=== PATIENT | female | born 1995 | race Caucasian/White ===

== ENCOUNTER → 2017-08-17 16:21 | Outpatient (CLI) | payer OTHER, SELFPAY ==
[2015-02-09 13:00] VITALS: BP 150/70
[2017-08-17 15:16] VITALS: BP 130/78; BMI 45.1
[2017-08-17 17:53] LABS: Hemoglobin A1c 5.2 % (4.2-6.3)
== END ==
PROVIDERS: Visit Provider Obstetrics & Gynecology
DX: Z34.81 Encounter for supervision of other normal pregnancy, first trimester (principal)
CPT/HCPCS: 36415; 83036

== ENCOUNTER → 2017-08-17 18:26 | Outpatient (CLI) | payer OTHER, SELFPAY ==
[2015-02-09 13:00] VITALS: BP 150/70
[2017-08-17 15:16] VITALS: BP 130/78; BMI 45.1
[2017-08-17 20:28] LABS: Chlamydia Trachomatis by PCR Negative (Negative); Neisserai gonorrhoeae by PCR Negative (Negative); Probe Check PASS; Sample Adequacy Control PASS; Specimen Processing Control PASS
[2017-08-22 17:11] LABS: HPV Reflexed? NOT INDICATED
== END ==
PROVIDERS: Visit Provider Obstetrics & Gynecology
DX: Z34.90 Encounter for supervision of normal pregnancy, unspecified, unspecified trimester (principal); Z12.4 Encounter for screening for malignant neoplasm of cervix
CPT/HCPCS: 87086; 87491; 87591; 88175; G0145

== ENCOUNTER → 2017-10-02 08:02 | Outpatient (REF) | payer SELFPAY ==
[2017-10-02 14:39] LABS: Absolute Lymphocyte Count 1.65 X10^3/ul (0.83-4.51); Absolute Neutrophil Count 9.3 X10^3/uL (2.0-7.7); Basophil# 0.02 X10^3/uL; Basophil% 0.2 % (0-1); Eosinophil# 0.14 X10^3/uL; Eosinophils% 1.2 % (0-5); Hematocrit 38.6 % (37-47); Hemoglobin 12.6 g/dl (12.0-15.0); Lymphocyte # 1.65 X10^3/ul (4.0); Lymphocyte % 14.2 % (19-41); Mean Corp Hgb Conc 32.6 g/gl (32-36); Mean Corpuscular Hgb 29.5 pg (27.0-32.0); Mean Corpuscular Volume 90.4 fL (81-99); Mean Platelet Vol. 11.4 fl (6.2-12.0); Monocyte# 0.46 X10^3/uL; Monocyte% 3.9 % (0-10); Neutrophil # 9.32 X10^3/uL (2.7-7.7); Neutrophil % 79.9 % (47-70); POSITIVE COUNT NO; POSITIVE DIFFERENTIAL NO; POSITIVE MORPHOLOGY NO; Platelet Count 230 K/mm3 (150-450); RBC Distribution Width SD 46.5 fl (35.1-43.9); Red Blood Count 4.27 M/mm3 (4.2-5.4); White Blood Count 11.7 K/mm3 (4.4-11.0)
== END ==
LOC: OLS.WCEH 08:02
DX: Z34.91 Encounter for supervision of normal pregnancy, unspecified, first trimester (principal)
CPT/HCPCS: 85025

== ENCOUNTER → 2017-10-02 14:16 | Outpatient (CLI) | payer OTHER, SELFPAY ==
[2017-10-02 14:42] LABS: Glucose Challenge Gest 1H 50g 140 mg/dL (70-140)
[2017-10-02 15:45] LABS: HIV - WCH Non-Reactive (Nonreactive); Rubella IgG 213.4 IU/mL
[2017-10-03 09:30] LABS: HEPATITIS B SURFACE AG Negative (Negative)
[2017-10-06 03:10] LABS: Rapid Plasmin Reagin (RPR) NONREACTIVE (NONREACTIVE)
== END ==
PROVIDERS: Visit Provider Obstetrics & Gynecology
DX: Z34.91 Encounter for supervision of normal pregnancy, unspecified, first trimester (principal)
CPT/HCPCS: 82950; 86592; 86703; 86762; 86850; 86900; 87340

== ENCOUNTER → 2017-11-01 16:18 | Outpatient (CLI) | payer OTHER, SELFPAY ==
--- NOTE | 2017-11-01 16:19 | US_ITS ---
STUDY: SECOND AND THIRD TRIMESTER OBSTETRICAL ULTRASOUND REASON FOR EXAM: Female, 22 years old. Routine survey. LMP: June 20, 2017. TECHNIQUE: Transabdominal and Transvaginal PRIOR ULTRASOUND: None. FINDINGS: There is a single intrauterine fetus. The fetus is in a variable presentation. There is demonstrated cardiac activity with a heart rate of 153 bpm. There is a normal amniotic fluid volume. The largest amniotic fluid pocket measures 5.8 cm x 3.8 cm. The placenta is posterior in location and is not low lying. There are Grade 0 placental changes. The cervix measures 3.5 cm in length. The adnexal regions are not visualized. BIOMETRY: BPD: 4.15 cm: 18 weeks, 5 days HC: 16.81 cm: 19 weeks, 4 days AC: 14.82 cm: 20 weeks, 1 days FL: 3.14 cm: 19 weeks, 6 days CI: 71% FL/BPD: 76% FL/HC: FL/AC: 21% HC/AC: 1.13 age by current US: 19 weeks, 4 days. DIEGO by current US: March 24, 2018. Estimated weight: 316 grams, +/- 46 grams, 84 %. Age by LMP: 19 weeks, 1 days. DIEGO by LMP: March 27, 2018. ANATOMY: Gender: Female Cranium: Normal lateral ventricles. Normal choroid plexus. Normal cerebellum. Normal cisterna magna. Normal face, nose and lips. Chest: Normal 4-chamber heart. Abdomen/Pelvis: Normal diaphragm. Normal stomach. Normal abdominal wall. Normal cord insertion. Normal 3 vessel cord. Normal kidneys. Normal bladder. Spine: Normal cervical spine. Normal thoracic spine. Normal lumbar spine. Normal sacrum. Extremities: Normal bilateral upper extremities. Normal bilateral lower extremities. US/OB Anatomy Scan IMPRESSION: Single live uterine gestation with a mean gestational age of 19 weeks and 4 days. Electronically Signed: Lamonte Mackay MD at 8:30 EDT Tel [phone], Service support ,
== END ==
PROVIDERS: Visit Provider Obstetrics & Gynecology
DX: Z34.91 Encounter for supervision of normal pregnancy, unspecified, first trimester (principal)
CPT/HCPCS: 76805

== ENCOUNTER → 2017-11-24 07:47 | Outpatient (CLI) | payer OTHER, SELFPAY ==
[2017-11-24 09:08] LABS: Glucose GTT-Gestation. Fasting 81 mg/dL (<105)
[2017-11-24 10:14] LABS: Glucose GTT-Gestational 1 Hr 153 mg/dL (<190)
[2017-11-24 12:09] LABS: Glucose GTT-Gestational 3 Hr 54 L (<145)
[2017-11-24 12:10] LABS: Glucose GTT-Gestational 2 Hr 113 mg/dL (<165)
== END ==
PROVIDERS: Visit Provider Obstetrics & Gynecology
DX: O99.810 Abnormal glucose complicating pregnancy (principal); Z3A.00 Weeks of gestation of pregnancy not specified
CPT/HCPCS: 36415; 82951; 82952

== ENCOUNTER → 2018-01-30 16:12 | Outpatient (CLI) | payer OTHER, SELFPAY ==
--- NOTE | 2018-01-30 16:14 | US_ITS ---
STUDY: SECOND AND THIRD TRIMESTER OBSTETRICAL ULTRASOUND - LIMITED REASON FOR EXAM: Female, 22 years old. growth. LMP: June 20, 2017 PRIOR ULTRASOUND: November 01, 2017. TECHNIQUE: Transabdominal ultrasound evaluation was performed. FINDINGS: There is a single intrauterine fetus. The fetus is in a cephalic presentation. There is demonstrated cardiac activity with a heart rate of 144 bpm. There is a normal amniotic fluid volume. The largest amniotic fluid pocket measures 5.6 by cm. The amniotic fluid index (LORNA) is 11.59 cm. The placenta is posterior in location and is not low lying. There are Grade 3 placental changes. The cervix measures 4.3 cm cm in length. BIOMETRY: BPD: 7.99 cm: 32 weeks, 1 days HC: 32.06 cm: 36 weeks, 2 days AC: 28.53 cm: 32 weeks, 4 days FL: 6.38 cm: 33 weeks, 0 days Age by LMP: 32 weeks, 0 days. DIEGO by LMP: March 27, 2018. age by prior US: 32 weeks, 3 days. DIEGO by prior US: March 24, 2018. age by current US: 33 weeks, 4 days. DIEGO by current US: March 16, 2018. Estimated weight: 2094 grams, +/- 306 grams, 67 percentile. US/OB Limited With Biometrics IMPRESSION: 1. Live single intrauterine at 33 weeks, 4 days. DIEGO is March 16, 2018. There is adequate interval growth since the prior ultrasound. 2. EFW of 2094 g. 3. LORNA of 11.59 cm. 4. Posterior grade 3 placenta. 5. Vertex presentation. Electronically Signed: Hemal Ford DO at 20:48 EDT Tel [phone], Service support ,
== END ==
LOC: US 16:13
PROVIDERS: Visit Provider Obstetrics & Gynecology
DX: Z34.91 Encounter for supervision of normal pregnancy, unspecified, first trimester (principal)
CPT/HCPCS: 76816

== ENCOUNTER 2018-02-18 12:10 | Outpatient (CLI) | payer OTHER, SELFPAY ==
[2018-02-18 12:45] VITALS: BMI 46.3
[2018-02-18 13:13] LABS: Red Blood Cells-Urine 0 SEEN /hpf (0-5)
[2018-02-18 13:15] LABS: Color, Urine Yellow (Yellow); Glucose, Dipstick Normal (Normal); Ketone-Dipstick 5 mg/dl (Negative); Leukocyte Esterase-Dipstick 25 /ul (Negative); Nitrite-Dipstick Negative (Negative); Occult Blood-Urine Negative /ul (Negative); Protein-Dipstick 15 mg/dl (Negative); Specific Gravity, Urine 1.025 (1.002-1.030); Urine Bilirubin Dipstick Negative (Negative); Urine Clarity Clear (Clear); Urine Urobilinogen Normal (Normal)
[2018-02-18 13:22] LABS: Bacteria 1+ /hpf (None Seen); Mucous, Urine 1+ /hpf (<or=2+); Squamous Epithelial Cells - UA 5-10 SEEN /hpf (5-10); White Blood Cells 0-5 SEEN /hpf (0-5)
--- NOTE | 2018-02-21 00:55 | OB.TRI.NOTE ---
- Problem List (1) Decreased movement Status: Acute History of Present Illness Date of Service: 02/21/18 Reason For Visit: LOW MOVEMENT Final DIEGO: 03/26/18 Final DIEGO Source: LMP Gestational age: 35 Weeks and 2 Days History of Present Illness: decreased fm Allergies coconut Allergy (Unverified 02/18/18 12:43) Rash shellfish derived Allergy (Verified 02/16/18 14:48) Hives NST - FHR Rate Baby A Baseline: 140 Variability:: Moderate Accelerations:: 15 x 15 Decelerations:: None NST Reactive:: Yes FHR Category:: Category I Uterine Activity:: no regular Impression/Plan decreased movement recative NST dc home
== END 2018-02-18 13:45 | disposition home or self-care (01) ==
LOC: WPOUT 12:19 → WP 12:19
PROVIDERS: Visit Provider Obstetrics & Gynecology
DX: O36.8130 Decreased fetal movements, third trimester, not applicable or unspecified (principal); Z3A.35 35 weeks gestation of pregnancy
CPT/HCPCS: 59025; 59050; 81001; 87086; 87088; 99218; G0378

== ENCOUNTER → 2018-03-01 18:07 | Outpatient (CLI) | payer OTHER, SELFPAY ==
[2018-03-01 20:21] LABS: Group B Strep DNA By PCR Negative (Negative); Internal Control PASS; Probe Check PASS; Specimen Processing Control PASS
== END ==
PROVIDERS: Visit Provider Obstetrics & Gynecology
DX: Z34.91 Encounter for supervision of normal pregnancy, unspecified, first trimester (principal)
CPT/HCPCS: 87081; 87653

== ENCOUNTER 2018-03-21 00:53 | Inpatient (IN) | payer OTHER, SELFPAY ==
[2018-03-21 01:40] VITALS: BMI 46.5
[2018-03-21] MEDS: Lactated Ringers 1,000 ML 50 ML IV ×3 (01:45→05:00)
[2018-03-21 01:56] LABS: Hemoglobin 12.5 g/dl (12.0-15.0); Mean Corp Hgb Conc 33.8 g/gl (32-36); Mean Corpuscular Hgb 29.2 pg (27.0-32.0); Mean Corpuscular Volume 86.4 fL (81-99); Mean Platelet Vol. 11.5 fl (6.2-12.0); Platelet Count 187 K/mm3 (150-450); RBC Distribution Width CV 14.5 % (11.6-14.6); RBC Distribution Width SD 44.1 fl (35.1-43.9); Red Blood Count 4.28 M/mm3 (4.2-5.4); White Blood Count 14.1 K/mm3 (4.4-11.0)
[2018-03-21 01:59] LABS: Scan Indicated on CBC? Y/N NO
[2018-03-21] MEDS: fentaNYL-bupivacaine (epidural) 100 ML BAG EPIDURAL ×2 (02:59→08:14)
[2018-03-21] MEDS: Oxytocin 30 units/NS 500 ml 30 UNITS/500 ML IV.SOLN IV (06:56)
--- NOTE | 2018-03-21 09:29 | PCM.HP.OB ---
- Problem List (1) Active labor at term Status: Acute (2) BMI 45.0-49.9, adult Status: Acute Comment: growth us q 4 weeks weekly nsts from 32 weeks on (3) Abnormal glucose Status: Acute Comment: 3 hour gtt normal (4) Rh negative status during Status: Acute Qualifiers: Comment: 28 weeks and PRN (5) Supervision of normal in first trimester Status: Acute Qualifiers: Comment: PRR DIEGO 03/26/18 [facility] Srinivasa History Date of Admission: 03/21/18 Final DIEGO: 03/26/18 Final DIEGO Source: LMP Gestational age: 39 Weeks and 2 Days History of this : This is a 23 year-old, , at 39 weeks gestational age PRESENTS IAL. she has had LOF clear fluid. she denies any vb and admits good fm. Allergies coconut Allergy (Verified 03/20/18 16:18) Rash shellfish derived Allergy (Verified 03/20/18 16:18) Hives Home Medications: Home Medications Vits [Prenatabs FA] 1 tab PO DAILY 02/02/15 RhoGAM Ultra-Filtered PLUS 1,500 unit (300 mcg) intramuscular syringe 1,500 unit IM ONCE #1 ea NS 01/10/18 Smoking Status: Never smoker Alcohol: None Number of Fetus(es): 1 Heart Tracin moderate variability reactive no decels cat I tracing TOCO Analysis: q 2-4 History Past Pregnancies: Past Pregnancies Pregancy History 2 Elective abortions Hx Para 1 Spontaneous abortions Hx # Term Pregnancies Ectopic pregnancies Hx # Pregnancies Multiple births # of living children Past Pregnancies Del. Date Name GA/Weeks Outcome Route Bth Weight Infant Gen Labor Lgth Anesthesia Del Locatn Provider FOB Unknown 2014 Rigo live - full term 7lb 15 ounces Male epidural Merida Expected Infant Delivery Method: Spontaneous Vaginal Review of Systems Constitutional: Denies: Fever, Malaise Eyes: Denies: Blurred vision, Vision Change HEENT: Denies: Head Aches, Visual Changes Cardiovascular: Denies: Chest Pain, Palpitations Respiratory: Denies: Cough, Shortness of Breath, Wheezing Gastrointestinal: Denies: Abdominal Pain, Diarrhea, Nausea, Vomiting Genitourinary: Denies: Dysuria, Hematuria Musculoskeletal: Denies: Joint Pain, Muscle pain Skin: Denies: Lesions, Rash Neurological: Denies: Blurred vision, Focal weakness, Headaches Psychiatric: Denies: Anxiety, Depression Endocrine: Denies: Heat/ Cold Intolerance Hematologic/ Lymphatic: Denies: Easy Bruising, Easy Bleeding Physical Exam General: Alert, Cooperative, No apparent distress HEENT: Atraumatic, Normocephalic. Negative for: Thyromegaly, Lymphadenopathy Cardiovascular: Regular rate Lungs: Normal air movement Abdomen: Soft, Non Tender, Gravid Neurological: Deep Tendon Reflexes 2+/4 and Symmetrical, Neuro grossly intact. Negative for: Clonus CYBER THREAT ANALYST: Normal external genitalia. Negative for: Vulvar lesions Estimated gestational size: Appropriate for gestational size Presentation: Cephalic Cervix Dilation (cm): 6.5 Assessment/Plan All Active Problems (Last Reviewed 03/20/18 @ 16:18 by Rebekah Patterson) Active labor at term (Acute) BMI 45.0-49.9, adult (Acute) Abnormal glucose (Acute) Rh negative status during (Acute) Supervision of normal in first trimester (Acute) Decreased movement (Resolved) False labor (Resolved) This is a 23 year-old, at 39 weeks gestational age. Patient presents IAL, plan expectant management for , pitocin PRN . Pain management: plans epidural. GBS negative. Management of any complications: none I have reviewed the [facility] and made any clinically relevant updates.
[2018-03-21] MEDS: Oxytocin 30 units/NS 500 ml 30 UNITS/500 ML IV.SOLN 334 UNITS IV (10:10)
--- NOTE | 2018-03-21 10:22 | PCM.OB.VAG ---
- Problem List (1) Active labor at term Status: Acute (2) BMI 45.0-49.9, adult Status: Acute Comment: growth us q 4 weeks weekly nsts from 32 weeks on (3) Abnormal glucose Status: Acute Comment: 3 hour gtt normal (4) Rh negative status during Status: Acute Qualifiers: Comment: 28 weeks and PRN (5) Supervision of normal in first trimester Status: Acute Qualifiers: Comment: PRR DIEGO 03/26/18 [facility] R[facility] Srinivasa Vaginal Delivery Maternal Presentation: Active Labor ial 39w2d Amniotic Membrane Rupture Type: Spontaneous at home Amniotic Fluid Description: Clear Final DIEGO: 03/26/18 Gestational age: 39 Weeks and 2 Days Date of Procedure: 03/21/18 Pre-Operative Diagnosis: ial Post-Operative Diagnosis: same plus AOL with pitocin Surgery/ Procedure Performed: Spontaneous Vaginal Delivery Type of Anesthesia: Epidural Description of Procedure: Patient began pushing and delivered the head in the [ISAÍAS] presentation. The head was delivered atraumatically [and a tight nuchal cord ?2 was identified and easily reduced over the infant's head]. The anterior and posterior shoulders delivered without complication followed by the rest of the and the was placed on the maternal abdomen. Delayed cord clamping was employed for approximately 60 seconds. Cord was clamped and cut and gentle traction was applied to the cord and the placenta delivered spontaneously immediately following it was noted to be intact with three-vessel cord. The perineum and vagina were inspected and a 2nd degree laceration was noted and repaired i nthe usual fashion with 3-0 rapide. EBL was 600 cc. Patient and tolerated delivery well. Presentation: ISAÍAS Placental Delivery Description: Spontaneous Placenta Disposition: [facility] Cord Entanglement: Around neck x 2, tight Estimated Blood Loss: 600 A gender: Female Episiotomy Description: None Laceration: Perineal Extension/lac, 2nd degree Medications given after delivery: IV Pitocin Complications: None
[2018-03-21] MEDS: Oxytocin 30 units/NS 500 ml 30 UNITS/500 ML IV.SOLN 167 UNITS IV (10:40)
[2018-03-21] MEDS: 0.9% Saline Lock 10 ML Syringe IV (11:47)
[2018-03-21] MEDS: Prenatal Vits Tablet 1 TABLET PO (13:44)
--- NOTE | 2018-03-21 14:33 | NURSING ---
this nursing aide reviewed the charting completed by Jessica Reddy student nurse and it is complete.
[2018-03-21 15:00] VITALS: BP 113/58; PULSE 76; RESP 16; TEMP 36.7; O2SAT 97
[2018-03-21 19:26] VITALS: BP 110/61; PULSE 100; RESP 18; TEMP 36.3; O2SAT 97
[2018-03-21] MEDS: Acetaminophen 500 MG Tablet 1000 MG PO (19:41)
[2018-03-21] MEDS: Ketorolac 10 MG Tablet PO (23:30)
[2018-03-22] VITALS (7 sets, daily range): BP systolic 100–118; BP diastolic 59–67; PULSE 75–94; RESP 14–18; TEMP 36.3–37.1; O2SAT 96–98
--- NOTE | 2018-03-22 07:45 | PCM.PN.OB ---
Patient Problems: Active and Suspected Problems (Last Reviewed 03/20/18 @ 16:18 by Rebekah Patterson) Active labor at term (Acute) Subjective: Doing well. No CP, SOB. - Physical Exam General: Alert, Oriented x3 Abdomen: Soft, Non Tender, - - FF below U Vital Signs Temp Pulse Resp BP Pulse Ox 98.8 F 75 14 100/61 98 03/22/18 07:31 03/22/18 07:31 03/22/18 07:31 03/22/18 07:31 03/22/18 07:31 Oxygen Delivery Method Room Air Weight: 270 lb 12.8 oz Body Mass Index (BMI) 46.5 Intake and Output for Last 24 Hours 03/20/18 03/21/18 03/22/18 23:59 23:59 23:59 Intake Total 3052 / 3052 Output Total 1901 / 1901 Balance 1151 / 1151 Medical Necessity - Tobacco Use Smoking Status: Never smoker Assessment/Plan All Active Problems (Last Reviewed 03/20/18 @ 16:18 by Rebekah Patterson) Active labor at term (Acute) BMI 45.0-49.9, adult (Acute) Abnormal glucose (Acute) Rh negative status during (Acute) Supervision of normal in first trimester (Acute) Decreased movement (Resolved) False labor (Resolved) POD#1: Routine care. Pain controlled OTC meds. . Rh negative
[2018-03-22] MEDS: Ketorolac 10 MG Tablet PO ×3 (07:50→21:32)
[2018-03-22] MEDS: Prenatal Vits Tablet 1 TABLET PO (11:56)
--- NOTE | 2018-03-22 13:01 | NURSING ---
0800 assisted [facility] Srinivasa Zamora with the pt's assessment this morning. Also assisted Srinivasa with documenting the vital signs and assessment results.
[2018-03-23 01:00] VITALS: BP 106/57; PULSE 87; RESP 18; TEMP 36.6
[2018-03-23 08:00] VITALS: BP 104/64; PULSE 87; RESP 16; TEMP 37
[2018-03-23] MEDS: Prenatal Vits Tablet 1 TABLET PO (10:03)
[2018-03-23] MEDS: Ketorolac 10 MG Tablet PO (10:03)
--- NOTE | 2018-03-23 12:25 | PCM.DCVAG ---
Discharge Diet: No Restrictions Discharge Activity: Return to Normal Activity, May not drive while taking narcotic pain medications., May Shower May resume sexual activity in: 4-6 weeks Call your doctor if your incision/area has: Continuous Slow Oozing, Sudden Increased Bleeding, Increased Pain/ Swelling, Increased Redness, Foul Smelling Discharge Additional Instructions: If you experience any of the following, contact your healthcare provider. Bleeding that soaks a pad every hour for 2 hours Fever 100.4 or higher Unrelieved incision or abdominal pain Swelling, redness, discharge or bleeding from your incision or episiotomy site Your incision begins to separate Problems urinating (including inability to urinate or burning while urinating). Visual changes Severe headache Flu-like symptoms Pain or redness in one of both of your breasts Pain, warmth, tenderness or swelling in your legs, especially the calf area Frequent nausea and vomiting Symptoms of depression or anxiety If you experience any of the following, call 911 or go to the nearest Emergency Room. Chest pain Problems breathing Seizure activity Partial or complete paralysis of a body part, slurred speech, weakness or drooping of the face, or a sudden inability to walk or hold your balance Allergies/Adverse Reactions: Allergies coconut Allergy (Verified 03/20/18 16:18) Rash shellfish derived Allergy (Verified 03/20/18 16:18) Hives Medications to take at Discharge Vits [Prenatabs FA] 1 tab PO DAILY 02/02/15 RhoGAM Ultra-Filtered PLUS 1,500 unit (300 mcg) intramuscular syringe 1,500 unit IM ONCE #1 ea NS 01/10/18 Please Follow Up With: Venecia Street MD - [phone] When: Call to make an appointment with your doctor in 6 weeks. If you had elevated Blood pressure or 4th degree laceration you will need to be seen in 2 weeks. Primary Care Physician: Care Physician,No Primary [Primary Care Provider] - Test Results: Test results from this visit will be discussed in further detail at your follow-up appointment, if applicable.
[2018-03-23 13:19] VITALS: BP 123/76; PULSE 92; RESP 16; TEMP 36.6; O2SAT 99
== END 2018-03-23 13:50 | disposition home or self-care (01) | DRG 775 ==
PROVIDERS: Admitting Provider Obstetrics & Gynecology; Visit Provider Obstetrics & Gynecology
DX: O69.1XX0 Labor and delivery complicated by cord around neck, with compression, not applicable or unspecified (principal); O36.0930 Maternal care for other rhesus isoimmunization, third trimester, not applicable or unspecified; Z37.0 Single live birth; Z3A.39 39 weeks gestation of pregnancy; O70.1 Second degree perineal laceration during delivery
CPT/HCPCS: 59025; 59050; 85027; 86850; 86900; 99218; J7120; A4216; G0378

== ENCOUNTER 2018-03-28 10:20 | Outpatient (CLI) | payer OTHER, SELFPAY | END 2018-03-28 11:45 | disposition home or self-care (01) | LOC: WPOUT 10:21 → WP 10:21 | PROVIDERS: Visit Provider Obstetrics & Gynecology | DX: Z39.1 Encounter for care and examination of lactating mother (principal) | CPT/HCPCS: 96152 ==

== ENCOUNTER → 2019-05-06 15:02 | Outpatient (CLI) | payer OTHER, MEDICAID, SELFPAY ==
[2019-05-06 14:25] VITALS: BMI 46.2
[2019-05-06 16:46] LABS: Prolactin 17.2 ng/mL
== END ==
PROVIDERS: Referring Provider Obstetrics & Gynecology; Visit Provider Obstetrics & Gynecology
DX: N64.3 Galactorrhea not associated with childbirth (principal)
CPT/HCPCS: 36415; 84146

== ENCOUNTER → 2019-05-09 08:43 | Outpatient (CLI) | payer OTHER, MEDICAID, SELFPAY ==
[2019-05-06 14:25] VITALS: BMI 46.2
--- NOTE | 2019-05-09 08:51 | US_ITS ---
STUDY: ULTRASOUND BREAST - RIGHT REASON FOR EXAM: Female, 24 years old. Right medial breast pain. TECHNIQUE: Axial and longitudinal images of the RIGHT breast were performed with a high resolution ultrasound transducer. COMPARISON: Comparison is made with prior mammogram done earlier in the day. FINDINGS: RIGHT Breast: The medial half of the right breast was examined by ultrasound. No sonographic abnormalities seen. US/Breast Limited Unilateral IMPRESSION: No sonographic abnormalities are seen. ASSESSMENT CATEGORY: BIRADS Category 1: Negative. A letter regarding these results will be sent to the patient by the facility within 30 days. Electronically Signed: Lamonte Mackay, at 15:14 EDT , Service support ,
--- NOTE | 2019-05-09 08:51 | BI_ITS ---
MAMMOGRAPHY - BILATERAL DIAGNOSTIC REASON FOR EXAM: Female, 24 years old. Right periareolar pain with discharge. PERTINENT HISTORY: Aunt with breast cancer. The patient stopped nursing 8 months ago. TECHNIQUE: Digital bilateral breast aakash (3D mammographic acquisition) in the CC and MLO projections. 2-D mediolateral oblique (MLO) and craniocaudad (CC) views of both breasts were obtained. CAD: Full Field Digital Mammography with Computer Added Detection was performed. COMPARISON: None. Baseline examination. FINDINGS: Breast Composition: There are scattered areas of fibroglandular density. There are no dominant masses or suspicious calcifications. Findings suggestive of a small bilateral benign appearing bilateral axillary lymph nodes. No other significant abnormalities are identified. BI/DIAG MAMM W/CAD, BILAT IMPRESSION: Negative diagnostic mammogram. With the patient's history of right periareolar discharge and pain, correlation with ultrasound is recommended. ASSESSMENT CATEGORY: BIRADS Category 0: Incomplete. Need additional imaging evaluation. A letter regarding these results will be sent to the patient by the facility within 30 days. Approximately 10% of breast cancers are not detected by mammography. A normal mammogram should not delay biopsy of a clinically suspicious abnormality. Electronically Signed: Lamonte Mackay, at 10:54 EDT , Service support ,
== END ==
PROVIDERS: Referring Provider Obstetrics & Gynecology; Visit Provider Obstetrics & Gynecology
DX: N64.4 Mastodynia (principal)
CPT/HCPCS: 76642; 77062; 77066; G0279

== ENCOUNTER → 2020-04-02 | Outpatient (CLI) | payer OTHER, MEDICAID, SELFPAY ==
[2019-05-06 14:25] VITALS: BMI 46.2
== END | disposition home or self-care (01) ==
LOC: LABSPEC 04-03 09:37
PROVIDERS: Visit Provider Family Medicine
DX: Z11.59 Encounter for screening for other viral diseases (principal)
CPT/HCPCS: 87635; U0003

== ENCOUNTER → 2020-04-16 | Outpatient (CLI) | payer OTHER, MEDICAID, SELFPAY ==
[2019-05-06 14:25] VITALS: BMI 46.2
== END | disposition home or self-care (01) ==
LOC: LABSPEC 10:58
PROVIDERS: Visit Provider Family Medicine
DX: Z11.59 Encounter for screening for other viral diseases (principal)
CPT/HCPCS: 87635; U0003

== ENCOUNTER → 2020-04-28 | Outpatient (CLI) | payer OTHER, MEDICAID, SELFPAY ==
[2020-04-28 15:57] VITALS: BMI 47.5
[2020-05-01 05:07] LABS: Chlamydia By Nucleic Acid AMP Negative (Negative)
[2020-05-01 07:46] LABS: Gonococcus By Nucleic Acid AMP Negative (Negative)
== END | disposition home or self-care (01) ==
LOC: LABSPEC 16:58
PROVIDERS: Referring Provider Nurse Practitioner Women's Health; Visit Provider Nurse Practitioner Women's Health
DX: Z11.3 Encounter for screening for infections with a predominantly sexual mode of transmission (principal)
CPT/HCPCS: 87491; 87591

== ENCOUNTER → 2020-04-30 | Outpatient (CLI) | payer OTHER, MEDICAID, SELFPAY ==
[2020-04-28 15:57] VITALS: BMI 47.5
== END | disposition home or self-care (01) ==
LOC: LABSPEC 08:49
PROVIDERS: Referring Provider Family Medicine; Visit Provider Family Medicine
DX: Z11.59 Encounter for screening for other viral diseases (principal)
CPT/HCPCS: 87635; U0003

== ENCOUNTER → 2020-05-14 | Outpatient (CLI) | payer OTHER, MEDICAID, SELFPAY ==
[2020-04-28 15:57] VITALS: BMI 47.5
== END | disposition home or self-care (01) ==
LOC: LABSPEC 10:01
PROVIDERS: Referring Provider Family Medicine; Visit Provider Family Medicine
DX: Z11.59 Encounter for screening for other viral diseases (principal)
CPT/HCPCS: 87635; U0003

== ENCOUNTER → 2020-05-28 | Outpatient (CLI) | payer OTHER, MEDICAID, SELFPAY ==
[2020-04-28 15:57] VITALS: BMI 47.5
== END | disposition home or self-care (01) ==
LOC: LABSPEC 12:24
PROVIDERS: Referring Provider Family Medicine; Visit Provider Family Medicine
DX: Z03.818 Encounter for observation for suspected exposure to other biological agents ruled out (principal)
CPT/HCPCS: 87635; U0003

== ENCOUNTER 2021-08-13 12:40 | Outpatient (CLI) | payer MEDICAID, SELFPAY ==
[2021-08-17 20:58] LABS: HPV Reflexed? NOT INDICATED
== END 2021-08-13 23:59 | disposition short-term general hospital (02) ==
LOC: LABSPEC 12:44
PROVIDERS: Visit Provider Obstetrics & Gynecology
DX: Z12.4 Encounter for screening for malignant neoplasm of cervix (principal)
CPT/HCPCS: 88175; G0145

== ENCOUNTER → 2023-03-08 | Outpatient (CLI) | payer MEDICAID, SELFPAY ==
--- NOTE | 2023-03-08 11:05 | US_ITS ---
INDICATION: pelvic pain EXAMINATION: Ultrasound US Transvaginal Non-OB TECHNIQUE: Transvaginal (for optimal evaluation of the adnexa) pelvic ultrasound was performed. Grayscale, spectral waveform, and color flow Doppler evaluation of the adnexa. COMPARISON: No relevant prior comparison study available FINDINGS: UTERUS: The uterus measures 9.4 x 5.1 x 5.8 cm. There is no uterine mass. The myometrium is heterogenous. The endometrial stripe measures 10.2 mm in AP diameter which is within normal limits. There is an intrauterine device in place and a grossly satisfactory position. RIGHT OVARY: 4.7 x 2.8 x 3.7 cm. There is a minimally complex 2.6 x 3.1 x 1.8 cm cyst. There is normal arterial inflow and venous outflow present in the right ovary. LEFT OVARY: 3.1 x 2.9 x 3.3 cm. Non-enlarged, normal echogenicity. There is normal arterial inflow and venous outflow present in the left ovary. FREE FLUID: There is trace free fluid. US/Transvaginal Non- IMPRESSION: Heterogenous myometrium may be secondary to adenomyosis. 2.6 x 3.1 x 1.8 cm right ovarian cyst. Electronically Signed: Cristiane Daly MD at 12:04 EDT ,
== END | disposition home or self-care (01) ==
LOC: US 11:04
PROVIDERS: PCP Family Medicine; Referring Provider Advanced Practice Midwife; Visit Provider Advanced Practice Midwife
DX: R10.2 Pelvic and perineal pain (principal)
CPT/HCPCS: 76830; 93976

== ENCOUNTER → 2023-06-12 | Outpatient (CLI) | payer MEDICAID, SELFPAY ==
--- NOTE | 2023-06-12 11:23 | US_ITS ---
INDICATION: minimally complex cyst EXAMINATION: Ultrasound US Transvaginal Non-OB TECHNIQUE: Transvaginal (for optimal evaluation of the adnexa) pelvic ultrasound was performed. Grayscale, spectral waveform, and color flow Doppler evaluation of the adnexa. COMPARISON: 03/08/2023. FINDINGS: UTERUS: Anteverted. The uterus measures 9.8 x 5.7 x 4 cm. There is no uterine mass. The endometrial stripe measures 7 mm in AP diameter which is within normal limits. RIGHT OVARY: Measures 2.3 x 2.9 x 2.5 cm. Non-enlarged, normal echogenicity. There is normal arterial inflow and venous outflow present in the right ovary. LEFT OVARY: Measures 3.5 x 2.7 x 2.6 cm. Non-enlarged, normal echogenicity. There is normal arterial inflow and venous outflow present in the left ovary. Stable size of slightly complex nonvascular left adnexal cyst measuring 2.1 x 1.9 x 1.7 cm, previously 2.1 x 1.7 x 1.9 cm. FREE FLUID: None. US/Transvaginal Non- IMPRESSION: Stable size of slightly complex left adnexal cyst. This could represent a hemorrhagic cyst, however, cannot rule out other lesions. Recommend additional follow-up US in 6-12 weeks to ensure resolution. Electronically Signed: Francisco Caballero MD at 23:53 EST ,
== END | disposition home or self-care (01) ==
LOC: US 11:23
PROVIDERS: PCP Family Medicine; Referring Provider Advanced Practice Midwife; Visit Provider Advanced Practice Midwife
DX: R10.2 Pelvic and perineal pain (principal); N80.03 Adenomyosis of the uterus; N83.291 Other ovarian cyst, right side
CPT/HCPCS: 76830

== ENCOUNTER → 2023-08-24 | Outpatient (CLI) | payer MEDICAID, SELFPAY ==
--- NOTE | 2023-08-24 10:30 | US_ITS ---
STUDY: ULTRASOUND OF THE FEMALE PELVIS - COMPLETE REASON FOR EXAM: Female, 28 years old. Follow up cyst left ovary LMP: August 21, 2023. TECHNIQUE: Transvaginal TECHNICAL QUALITY: Adequate. COMPARISON: Comparison is made with prior study dated June 12, 2023. FINDINGS: The uterus is anteverted and is in a midline position. The uterus is enlarged and measures 10 cm x 5.8 cm x 4.7 cm. There is a Nabothian cyst of the cervix. The endometrium measures 4.8 mm in thickness, and is hyperechoic. There is no demonstrated endometrial mass. Heterogeneous echotexture of the myometrium. There is a 7 mm x 8 mm x 5 mm uterine fibroid. I.U.D. - The patient does not have an I.U.D. The right ovary is visualized. The right ovary measures 3.2 cm x 2.4 cm x 1.7 cm. There is no right ovarian cyst or ovarian mass. There is no visualized right adnexal mass or complex lesion. There is normal arterial and normal venous vascularity. The left ovary is visualized. The left ovary measures 2.7 cm x 2.5 cm x 1.7 cm. There is no left ovarian cyst or ovarian mass. There is no visualized left adnexal mass or complex lesion. There is normal arterial and normal venous vascularity. The previously seen left ovarian cyst as resolved. There is no fluid in the cul-de-sac. US/Transvaginal Non- IMPRESSION: Small uterine fibroid. Heterogeneous echotexture of the myometrium. Mildly enlarged uterus. Electronically Signed: Lamonte Mackay MD at 15:12 EST ,
== END | disposition home or self-care (01) ==
LOC: US 10:29
PROVIDERS: PCP Family Medicine; Referring Provider Advanced Practice Midwife; Visit Provider Advanced Practice Midwife
DX: N83.292 Other ovarian cyst, left side (principal)
CPT/HCPCS: 76830

== ENCOUNTER → 2024-08-26 | Outpatient (CLI) | payer OTHER, SELFPAY ==
[2024-08-29 15:07] LABS: HPV APTIMA, High Risk Negative (Negative)
== END | disposition home or self-care (01) ==
PROVIDERS: PCP Family Medicine; Referring Provider Obstetrics & Gynecology; Visit Provider Obstetrics & Gynecology
DX: Z12.4 Encounter for screening for malignant neoplasm of cervix (principal)
CPT/HCPCS: 87624; 88175; G0145